=== PATIENT | female | born 1965 | race Hispanic/Latino ===

== ENCOUNTER 2017-02-25 23:15 | Emergency (ER) | payer SELFPAY ==
[2017-02-25 23:28] VITALS: RESP 16
--- NOTE | 2017-02-26 00:14 | C.PDOC ---
History Of Present Illness Patients presents to ED with intoxication of ETOH. No other complaints Time Seen by Provider: 02/26/17 00:14 Chief Complaint (Nursing): Substance Abuse History Per: Patient History/Exam Limitations: no limitations Onset/Duration Of Symptoms: Days Suicide/Self Injury Attempted (Context): None Modifying Factor(s): Alcohol Severity: Mild Pain Scale Rating Of: 2 Associated Symptoms: denies: Anger, Anxiety Involuntary Hold By: None Recent travel outside of the [place]: No Additional History Per: Patient Past Medical History Reviewed: Historical Data, Nursing Documentation, Vital Signs Vital Signs: Last Vital Signs Temp 98 F 02/26/17 03:12 Pulse 105 H 02/26/17 03:12 Resp 16 02/26/17 03:12 BP 113/68 02/26/17 03:12 Pulse Ox 97 02/26/17 03:49 Family History: States: No Known Family Hx - Social History Hx Alcohol Use: Yes Hx Substance Use: No - Immunization History Hx Tetanus Toxoid Vaccination: Yes Hx Influenza Vaccination: Yes Hx Pneumococcal Vaccination: No Review Of Systems Constitutional: Negative for: Fever, Chills Respiratory: Negative for: Shortness of Breath Gastrointestinal: Negative for: Nausea Musculoskeletal: Negative for: Back Pain Skin: Negative for: Rash, Lesions Neurological: Negative for: Change in Speech, Seizures, Dizziness Psych: Negative for: Anxiety Physical Exam - Physical Exam Appears: Non-toxic, No Acute Distress Skin: Warm, Dry Eye(s): bilateral: Normal Inspection Oral Mucosa: Moist Neck: Supple Chest: Symmetrical Cardiovascular: Rhythm Regular Respiratory: No Rales, No Rhonchi, No Wheezing Gastrointestinal/Abdominal: Soft, No Tenderness Back: Normal Inspection Extremity: Normal ROM Extremity: Bilateral: Atraumatic, Normal Color And Temperature Neurological/Psych: Oriented x3 Gait: Unable To Assess ED Course And Treatment O2 Sat by Pulse Oximetry: 97 Pulse Ox Interpretation: Normal Reevaluation Time: 05:58 Reassessment Condition: Improved Disposition Counseled Patient/Family Regarding: Studies Performed, Diagnosis, Need For Followup - Disposition Referrals: [facility] at [facility] [Outside] Disposition: HOME/ ROUTINE Disposition Time: 00:14 Condition: FAIR Instructions: Alcohol Intoxication (DC) - Clinical Impression Clinical Impression: Alcoholic intoxication - PA / HISTORIC SITE ADMINISTRATOR / Resident Statement MD/DO has reviewed & agrees with the documentation as recorded. - Scribe Statement The provider has reviewed the documentation as recorded by the Scribe Maricsa Anglin All medical record entries made by the I[facility] were at my direction and personally dictated by me. I have reviewed the chart and agree that the record accurately reflects my personal performance of the history, physical exam, medical decision making, and the department course for this patient. I have also personally directed, reviewed, and agree with the discharge instructions and disposition.
[2017-02-26 03:48] VITALS: O2SAT 97
[2017-02-26 06:17] VITALS: BP 115/70; PULSE 82; TEMP 98.2
== END 2017-02-26 06:17 | disposition home or self-care (01) ==
LOC: C.ER 23:15
DX: F10.120 Alcohol abuse with intoxication, uncomplicated (principal); Y90.9 Presence of alcohol in blood, level not specified